=== PATIENT | male | born 1935 | race Caucasian/White ===

== ENCOUNTER → 2017-11-12 | Outpatient (CLI) | payer MEDICARE, BC ==
[~2017-11-12] MED LIST: ATOR20TA42 PO; AVOD0.5C PO; OMEP20CA5 PO; VASO10TA8 PO
--- NOTE | 2017-11-17 10:17 | RSPPFT ---
DATE OF PROCEDURE: 11/12/17 COMMENTS: STATIC VOLUMES: TLC mildly, FRC and RV low normal. DIFFUSION: Moderately reduced. IMPRESSION: Mild restriction with reduction in diffusion of moderate severity.
== END ==
LOC: HRSP 08:39
PROVIDERS: ATTEND Internal Medicine
DX: R06.02 Shortness of breath (principal)
CPT/HCPCS: 94618; 94726; 94729

== ENCOUNTER 2018-01-16 11:52 | Inpatient (IN) | payer MEDICARE, BC ==
[2018-01-16] VITALS (8 sets, daily range): BP systolic 94–196; BP diastolic 50–92; PULSE 70–91; RESP 15–23; TEMP 97.3–98.1; O2SAT 95–99
[~2018-01-16] VITALS: Ht 177.8 cm; Wt 93.3 kg
[~2018-01-16 11:52] MED LIST changes: -ATOR20TA42 PO; +LIPI20TA PO; -OMEP20CA5 PO; +PRIL20TA2 PO
[2018-01-16] MEDS ORDERED: LISI-519 PO (12:16)
[2018-01-16] MEDS ORDERED: VITA1000 PO (12:16)
[2018-01-16] MEDS ORDERED: OMEP20TA93 PO (12:16)
[2018-01-16] MEDS ORDERED: GLIM1TAB PO (12:16)
[2018-01-16] MEDS ORDERED: PRAD150C PO (12:16)
[2018-01-16] MEDS ORDERED: SODIUM CHLORIDE 0.9% FLUSH 10 ML FLUSH IVF PRN (12:30)
--- NOTE | 2018-01-16 12:44 | PD ---
HPI Chief Complaint: Neuro Symptoms/ Deficits Time Seen by Provider: 12:21 Travel History International Travel<30 days: No Contact w/Intl Traveler<30days: No Traveled to known affect area: No History of Present Illness HPI 82-year-old male with a history of hypertension, hyperlipidemia, diabetes mellitus, paroxysmal atrial fibrillation, presents today with complaints of difficulty walking earlier today which is resolved. The patient states that on Wednesday, 3 days ago, he had an episode where he was not able to see out of both eyes. He states this lasted roughly 15 minutes. He states he called his accounts specialist who told him to take his Pradaxa which he is already on as well as to aspirin. He states that it had resolved and everything was fine until last night when he had an episode of dizziness. He states that it also resolved however this morning when he was at breakfast he had the weakness in his legs. is at the bedside states that she and their friends had to help him in and out of the car when this happened. The patient is a friend of 1 of our retired pediatricians and he called him who stated that he should come to the hospital and be evaluated. The patient has no symptoms at this time. PFSH Past Medical History Hx Anticoagulant Therapy: Yes Arthritis: No Atrial Fibrillation: Yes Autoimmune Disease: No Blood Disorders: No Heart Rhythm Problems: Yes Cancer: Yes (prostate) Cardiovascular Problems: Yes High Cholesterol: Yes Chemotherapy: No Chest Pain: No Congestive Heart Failure: No Cerebrovascular Accident: Yes Diabetes: Yes (II) Patient Takes Glucophage: Yes Endocrine: Yes Gastrointestinal Disorders: Yes (hemorrhoids, bowel obstruction) GERD: Yes Genitourinary: No Hepatitis: No Hiatal Hernia: No Hypertension: Yes Immune Disorder: No Musculoskeletal: Yes Neurologic: No Psychiatric: No Reproductive: No Respiratory: No Myocardial Infarction: No Radiation Therapy: No Thyroid Disease: No Ulcer: No Tetanus Vaccination: Unknown Past Surgical History Abdominal Surgery: No Appendectomy: No Cardiac Surgery: No Cholecystectomy: No Ear Surgery: No Endocrine Surgery: No Eye Surgery: No Genitourinary Surgery: No Gynecologic Surgery: No Oral Surgery: No Thoracic Surgery: No Other Surgery: Yes (CERVICAL SPINE FUSION 30 YEARS AGO, MULTIPLE STAPH INFECTIONS ON FINGERS) Social History Alcohol Use: Yes (2/day) Tobacco Use: No Substance Use: No Allergies-Medications (Allergen,Severity, Reaction): Coded Allergies: latex (Unverified Allergy, Mild, RASH, 01/16/18) Reported Meds & Prescriptions Reported Meds & Active Scripts Active Reported Vitamin D-1000 (Cholecalciferol) 1,000 Unit Tab 1,000 Units PO DAILY Glimepiride 1 Mg Tab 1 Mg PO DAILY Take with breakfast or first main meal Pradaxa (Dabigatran) 150 Mg Cap 150 Mg PO DAILY Lisinopril 5 Mg Tab 5 Mg PO DAILY PRN Omeprazole 20 Mg Tab 20 Mg PO DAILY Lipitor (Atorvastatin Calcium) 20 Mg Tab 20 Mg PO HS Review of Systems Except as stated in HPI: all other systems reviewed are Neg General / Constitutional: No: Fever, Chills Eyes: Positive: Blindness (On Wednesday for 15 minutes bilateral eye blindness.), Other (Wednesday episode of bilateral eye blindness.), No: Blurred Vision HENT: Positive: Lightheadedness (Yesterday evening.), No: Headaches, Neck Pain Cardiovascular: Positive: Irregular Rhythm (History of atrial fibrillation), No : Chest Pain or Discomfort, Palpitations Respiratory: No: Cough, Shortness of Breath Gastrointestinal: No: Nausea, Vomiting, Abdominal Pain Genitourinary: No: Frequency, Dysuria Musculoskeletal: Positive: Weakness (Bilateral lower extremities earlier.), No : Pain Neurologic: Positive: Weakness (Bilateral lower extremity weakness earlier this morning which has resolved.), Dizziness (Last night which resolved.), Ataxia (Earlier with the it weakness.), No: Headache, Change in Mentation, Slurred Speech, Seizures, Sensory Disturbance Physical Exam Narrative GENERAL: Well-developed well-nourished male in no acute respiratory distress. SKIN: Focused skin assessment warm/dry. HEAD: Atraumatic. Normocephalic. EYES: No scleral icterus. No injection or drainage. ENT: No nasal bleeding or discharge. Mucous membranes pink and moist. NECK: Trachea midline. Supple. Questionable right faint carotid bruit. CARDIOVASCULAR: Regular rate and rhythm. No murmur appreciated. RESPIRATORY: No accessory muscle use. Clear to auscultation. Breath sounds equal bilaterally. GASTROINTESTINAL: Abdomen soft, non-tender, nondistended. MUSCULOSKELETAL: No obvious deformities. No clubbing. No cyanosis. No edema. NEUROLOGICAL: Awake and alert. No obvious cranial nerve deficits. Motor grossly within normal limits. Normal speech. Normal heel to rogers bilaterally. Normal finger to nose bilaterally. PSYCHIATRIC: Appropriate mood and affect; insight and judgment normal. Data Data Last Documented VS Vital Signs Date Time Temp Pulse Resp B/P (MAP) Pulse Ox O2 Delivery O2 Flow Rate FiO2 01/16/18 12:10 76 20 160/77 (104) 99 Room Air 01/16/18 11:56 97.3 Orders Orders Electrocardiogram (01/16/18 12:21) Prothrombin Time / Inr (Pt) (01/16/18 12:21) Act Partial Throm Time (Ptt) (01/16/18 12:21) Complete Blood Count With Diff (01/16/18 12:21) Comprehensive Metabolic Panel (01/16/18 12:21) Urinalysis - C+S If Indicated (01/16/18 12:21) Ct Brain W/O Iv Contrast(Rout) (01/16/18 12:21) Chest, Single Ap (01/16/18 12:21) Ecg Monitoring (01/16/18 12:21) Iv Access Insert/Monitor (01/16/18 12:21) Oximetry (01/16/18 12:21) Sodium Chloride 0.9% Flush (Ns Flush) (01/16/18 12:30) Admit To Inpatient (01/16/18 ) Code Status (01/16/18 14:36) Vital Signs (Adult) Q4H (01/16/18 14:36) Activity Oob Ad April (01/16/18 14:36) Bedside Glucose NICHOL.CSUGAR (01/16/18 14:36) Manager Organizational / Telemetry .CONTINUOUS (01/16/18 14:36) Intake + Output NICHOL.QSHIFT (01/16/18 14:36) Notify Dr: Other (01/16/18 14:36) Diet Npo (01/16/18 Dinner) Sodium Chlor 0.9% 1000 Ml Inj (Ns 1000 M (01/16/18 14:36) Sodium Chloride 0.9% Flush (Ns Flush) (01/16/18 14:45) Sodium Chloride 0.9% Flush (Ns Flush) (01/16/18 21:00) Acetaminophen (Tylenol) (01/16/18 14:45) Ondansetron Inj (Zofran Inj) (01/16/18 14:45) Basic Metabolic Panel (Bmp) (01/17/18 06:00) Complete Blood Count With Diff (01/17/18 06:00) Creatine Kinase (Cpk) (01/16/18 14:36) Creatine Kinase (Cpk) (01/16/18 20:36) Troponin I (01/16/18 14:36) Troponin I (01/16/18 20:36) Prothrombin Time / Inr (Pt) (01/17/18 06:00) Resp Oxygen [place] 1-4 L (01/16/18 ) Pt Request For Service (01/16/18 14:36) Ot Request For Service (01/16/18 14:36) Speech Therapy Consult-Eval/Tx (01/16/18 14:36) Case Management Consult (01/16/18 14:36) Heparin Inj (Heparin Inj) (01/16/18 16:00) Scd Bilateral/Knee High NICHOL.BID (01/16/18 14:36) Naloxone Inj (Narcan Inj) (01/16/18 14:45) Sennosides (Senokot) (01/16/18 14:45) Bisacodyl Supp (Dulcolax Supp) (01/16/18 14:45) Lactulose Liq (Lactulose Liq) (01/16/18 14:45) Inpatient Certification (01/16/18 ) Consult Neurology (01/16/18 ) Lipid Profile (01/16/18 14:45) Thyroid Stimulating Hormone (01/16/18 14:45) Free Thyroxine (T4) (01/16/18 14:45) Hemoglobin (Hgb) A1c (01/16/18 14:45) C-Reactive Protein (Crp) (01/16/18 14:45) Rapid Plasma Regin (Rpr) W Ttr (01/16/18 14:45) Echo 2d Comp With Doppler (01/16/18 ) Mra Brain W/O Contrast (Cow) (01/16/18 ) Mri Brain W/O Contrast (01/16/18 ) Us Carotid Arteries Comp Bilat (01/16/18 ) Vitamin B1 (Thiamine) (01/16/18 14:49) Folate, Serum (01/16/18 14:49) Vitamin B12 (01/16/18 14:49) Atorvastatin (Lipitor) (01/16/18 21:00) Cholecalciferol (Vitamin D3) (01/17/18 09:00) Dabigatran (Pradaxa) (01/17/18 09:00) Pantoprazole (Protonix) (01/17/18 09:00) Insulin Aspart Supplemtl Scale (Novolog (01/16/18 17:00) Admit Order (Ed Use Only) (01/16/18 15:25) Labs Laboratory Tests Test 01/16/18 12:28 01/16/18 13:54 White Blood Count 6.6 TH/MM3 Red Blood Count 4.27 MIL/MM3 Hemoglobin 14.6 GM/DL Hematocrit 41.8 % Mean Corpuscular Volume 97.9 FL Mean Corpuscular Hemoglobin 34.3 PG Mean Corpuscular Hemoglobin Concent 35.0 % Red Cell Distribution Width 13.2 % Platelet Count 160 TH/MM3 Mean Platelet Volume 8.2 FL Neutrophils (%) (Auto) 68.6 % Lymphocytes (%) (Auto) 23.0 % Monocytes (%) (Auto) 7.2 % Eosinophils (%) (Auto) 0.6 % Basophils (%) (Auto) 0.6 % Neutrophils # (Auto) 4.5 TH/MM3 Lymphocytes # (Auto) 1.5 TH/MM3 Monocytes # (Auto) 0.5 TH/MM3 Eosinophils # (Auto) 0.0 TH/MM3 Basophils # (Auto) 0.0 TH/MM3 CBC Comment DIFF FINAL Differential Comment Prothrombin Time 12.0 SEC Prothromb Time International Ratio 1.2 RATIO Activated Partial Thromboplast Time 32.2 SEC Blood Urea Nitrogen 25 MG/DL Creatinine 1.95 MG/DL Random Glucose 142 MG/DL Total Protein 7.1 GM/DL Albumin 3.5 GM/DL Calcium Level 8.6 MG/DL Alkaline Phosphatase 77 U/L Aspartate Amino Transf (AST/SGOT) 34 U/L Alanine Aminotransferase (ALT/SGPT) 39 U/L Total Bilirubin 1.0 MG/DL Sodium Level 139 MEQ/L Potassium Level 4.6 MEQ/L Chloride Level 106 MEQ/L Carbon Dioxide Level 25.2 MEQ/L Anion Gap 8 MEQ/L Estimat Glomerular Filtration Rate 33 ML/MIN Total Creatine Kinase 225 U/L Troponin I LESS THAN 0.02 NG/ML Urine Color YELLOW Urine Turbidity CLEAR Urine pH 5.0 Urine Specific [place] 1.007 Urine Protein NEG mg/dL Urine Glucose (UA) NEG mg/dL Urine Ketones NEG mg/dL Urine Occult Blood NEG Urine Nitrite NEG Urine Bilirubin NEG Urine Urobilinogen LESS THAN 2.0 MG/DL Urine Leukocyte Esterase NEG Urine Hyaline Casts 1 /lpf Microscopic Urinalysis Comment CATH-CULT NOT IND MDM Medical Decision Making Medical Screen Exam Complete: Yes Emergency Medical Condition: Yes Differential Diagnosis TIA versus CVA versus metabolic derangement versus failed anticoagulation Narrative Course 82-year-old male presents here with TIA like him times. Patient had an episode on Wednesday where he had loss of vision bilaterally. Today he had an episode of dizziness and ataxia. Both symptoms has resolved here. CT scan shows no evidence of acute intracranial normality's. EKG showed sinus rhythm not A. fib. The patient is already anticoagulated on Pradaxa. Given this, I will admit him to the hospital. Case was discussed with Dr. Vides, [facility] hospitalist, who will admit the patient to his service. The patient will be a full admit given his symptoms despite anticoagulation. He will need an MRI and carotid ultrasound. Diagnosis Primary Impression: Recurrent TIA Additional Impressions: History of atrial fibrillation Anticoagulated Questionable right carotid bruit Admitting Information Admitting Physician Requests: Admit Jg Zamora MD Jan 16, 2018 12:44
[2018-01-16 12:45] LABS: AUTOMATED NEUTROPHIL # 4.5 TH/MM3 (1.8-7.7); BASOPHIL % 0.6 % (0.0-2.0); EOSINOPHIL % 0.6 % (0.0-4.0); HEMATOCRIT 41.8 % (39.0-51.0); HEMOGLOBIN 14.6 GM/DL (13.0-17.0); LYMPHOCYTE # 1.5 TH/MM3 (1.0-4.8); MEAN CELL VOLUME 97.9 FL (80.0-100.0); MEAN CORPUSCULAR HEMOGLOBIN 34.3 PG (27.0-34.0); MEAN PLATELET VOLUME 8.2 FL (7.0-11.0); MONO % 7.2 % (0.0-8.0); MONOCYTE # 0.5 TH/MM3 (0-0.9); NEUT % 68.6 % (16.0-70.0); PLATELET COUNT 160 TH/MM3 (150-450); RED BLOOD COUNT 4.27 MIL/MM3 (4.50-5.90); RED CELL DISTRIBUTION WIDTH 13.2 % (11.6-17.2); WHITE BLOOD COUNT 6.6 TH/MM3 (4.0-11.0)
--- NOTE | 2018-01-16 12:49 | RADRPT ---
EXAM DATE/TIME: 01/16/2018 12:26 [facility] COMPARISON: CHEST SINGLE AP, December 24, 2009, 21:42. INDICATIONS : Short of breath MEDICAL HISTORY : A-fib SURGICAL HISTORY : None. ENCOUNTER: Initial ACUITY: 1 day PAIN SCORE: 0/10 LOCATION: chest FINDINGS: The heart is at the upper limits of normal in size. The lungs are clear. The visualized bony structur es are grossly intact. CONCLUSION: 1. No acute cardiopulmonary findings. Stable compared to prior dated 12/24/09 Lester Lacy MD on January 16, 2018 at 12:46 Board Certified Radiologist. This report was verified electronically.
[2018-01-16 12:55] LABS: INTERNATIONAL NORMALIZED RATIO 1.2 RATIO
[2018-01-16 13:01] LABS: ALKALINE PHOSPHATASE 77 U/L (45-117); TOTAL PROTEIN 7.1 GM/DL (6.4-8.2)
[2018-01-16 13:03] LABS: ALBUMIN 3.5 GM/DL (3.4-5.0); ALT (GPT) 39 U/L (12-78); AST (GOT) 34 U/L (15-37); BICARBONATE 25.2 MEQ/L (21.0-32.0); BLOOD UREA NITROGEN 25 MG/DL (7-18); CALCIUM 8.6 MG/DL (8.5-10.1); CHLORIDE 106 MEQ/L (98-107); CREATININE 1.95 MG/DL (0.60-1.30); GLOMERULAR FILTRATION RATE 33 ML/MIN (>89); GLUCOSE,RANDOM 142 MG/DL (74-106); SODIUM (NA) 139 MEQ/L (136-145)
--- NOTE | 2018-01-16 14:08 | RADRPT ---
EXAM DATE/TIME: 01/16/2018 13:10 [facility] COMPARISON: CT BRAIN W/O CONTRAST, December 24, 2009, 23:53. INDICATIONS : Unsteady gait. TIA, temporary visual loss. RADIATION DOSE: 36.52 CTDIvol (mGy) MEDICAL HISTORY : Cerebrovascular disease. Cardiovascular disease Hypertension.AFib,GERD, prostate ca, diabetes SURGICAL HISTORY : None. ENCOUNTER: Initial ACUITY: 2 days PAIN SCALE: 0/10 LOCATION: cranial TECHNIQUE: Multiple contiguous axial images were obtained of the head. Using automated exposure control and adj ustment of the mA and/or kV according to patient size, radiation dose was kept as low as reasonably a chievable to obtain optimal diagnostic quality images. DICOM format image data is available electro nically for review and comparison. FINDINGS: CEREBRUM: The ventricles are normal for age. No evidence of midline shift, mass lesion, hemorrhage or acute in farction. No extra-axial fluid collections are seen. POSTERIOR FOSSA: The cerebellum and brainstem are intact. The 4th ventricle is midline. The cerebellopontine angle i s unremarkable. EXTRACRANIAL: The visualized portion of the orbits is intact. SKULL: The calvaria is intact. No evidence of skull fracture. CONCLUSION: Normal examination. Sheila Drake MD on January 16, 2018 at 14:03 Board Certified Radiologist. This report was verified electronically.
[2018-01-16 14:31] LABS: BILIRUBIN, URINE NEG (NEG); BLOOD, URINE NEG (NEG); GLUCOSE,URINE NEG (NEG); HYALINE CAST, URINE 1 /lpf (RARE); KETONE, URINE NEG (NEG); NITRITE,URINE NEG (NEG); URINE COLOR YELLOW (YELLW/STRAW); URINE LEUKOCYTE ESTERASE NEG (NEG)
[2018-01-16] MEDS ORDERED: BISACODYL 10 MG SUPP RECTAL PRN (14:45)
[2018-01-16] MEDS ORDERED: LACTULOSE SYRUP 20 GM/30 ML CUP PO PRN (14:45)
[2018-01-16] MEDS ORDERED: SENNOSIDES 8.6 MG TAB PO PRN (14:45)
[2018-01-16] MEDS ORDERED: ONDANSETRON HCL 4 MG/2 ML VIAL IVP PRN (14:45)
[2018-01-16] MEDS ORDERED: ACETAMINOPHEN 325 MG TAB PO PRN (14:45)
[2018-01-16] MEDS ORDERED: SODIUM CHLORIDE 0.9% FLUSH 10 ML FLUSH IV FLUSH PRN (14:45)
[2018-01-16] MEDS ORDERED: NALOXONE HCL 0.4 MG/ML AMP IV PUSH PRN (14:45)
--- NOTE | 2018-01-16 14:51 | HHI.HP ---
[facility]Staff Admission Diagnosis Diagnoses: Chief Complaint: unable to walk Travel History International Travel<30 Days: No Contact w/Intl Traveler <30 Da: No Traveled to Known Affected Are: No History of Present Illness This is a pleasant 82 y/o male with Hypertension, Hyperlipidemia, DM II, PAF, who was brought in to Emergency Room with difficulty walking earlier today which is resolved. The patient states that on Wednesday, 3 days ago , he had an episode where he was not able to see out of both eyes. He states this lasted roughly 15 minutes. He states he called his mammographer who told him to take his Pradaxa which he is already on as well as to aspirin. He states that it had resolved and everything was fine until last night when he had an episode of dizziness. He states that it also resolved however this morning when he was at breakfast he had the weakness in his legs. is at the bedside states that she and their friends had to help him in and out of the car when this happened. Seen in his bedroom in the presence of his Daughter Mrs. Markham and his Mrs. Salinas all questions answered. Review of Systems Constitutional: DENIES: Fever, Chills, Change in appetite Endocrine: DENIES: Heat/cold intolerance Eyes: DENIES: Blurred vision, Eye pain Neurologic: COMPLAINS OF: Poor Balance Except as stated in HPI: all other systems reviewed are Neg Past Family Social History Past Medical History Atrial Fibrillation on Pradaxa Prostate Cancer CAD Hyperlipidemia CVA DM II GERD Hypertension Past Surgical History Cervical spine fusion 30 years ago multiple staph infections on fingers Reported Medications Reported Meds & Active Scripts Active Reported Vitamin D-1000 (Cholecalciferol) 1,000 Unit Tab 1,000 Units PO DAILY Glimepiride 1 Mg Tab 1 Mg PO DAILY Take with breakfast or first main meal Pradaxa (Dabigatran) 150 Mg Cap 150 Mg PO DAILY Lisinopril 5 Mg Tab 5 Mg PO DAILY PRN Omeprazole 20 Mg Tab 20 Mg PO DAILY Lipitor (Atorvastatin Calcium) 20 Mg Tab 20 Mg PO HS Allergies: Coded Allergies: latex (Unverified Allergy, Mild, RASH, 01/16/18) Active Ordered Medications Current Medications Medications (Trade) Dose Ordered Sig/Hawk Route Start Time Stop Time Status Last Admin (NS Flush) 2 ml UNSCH PRN IVF 01/16/18 12:30 Sodium Chloride 1,000 ml @ 100 mls/hr Q10H IV 01/16/18 14:36 (NS Flush) 2 ml UNSCH PRN IV FLUSH 01/16/18 14:45 (NS Flush) 2 ml BID IV FLUSH 01/16/18 21:00 (Tylenol) 650 mg Q4H PRN PO 01/16/18 14:45 (Zofran Inj) 4 mg Q6H PRN IVP 01/16/18 14:45 (Heparin Inj) 5,000 units Q12H SQ 01/16/18 16:00 (Narcan Inj) 0.4 mg UNSCH PRN IV PUSH 01/16/18 14:45 (Senokot) 17.2 mg Q12H PRN PO 01/16/18 14:45 (Dulcolax Supp) 10 mg DAILY PRN RECTAL 01/16/18 14:45 (Lactulose Liq) 30 ml DAILY PRN PO 01/16/18 14:45 Family History Brother with CAD and Lung Cancer Brother with CAD Father with Prostate Cancer Social History Alcohol abuse two a day. Physical Exam Vital Signs Vital Signs Date Time Temp Pulse Resp B/P (MAP) Pulse Ox O2 Delivery O2 Flow Rate FiO2 01/16/18 12:10 76 20 160/77 (104) 99 Room Air 01/16/18 11:56 97.3 76 16 117/62 (80) 99 Physical Exam GENERAL: Well-developed well-nourished male in no acute respiratory distress. SKIN: Focused skin assessment warm/dry. HEAD: Atraumatic. Normocephalic. EYES: No scleral icterus. No injection or drainage. ENT: No nasal bleeding or discharge. Mucous membranes pink and moist. NECK: Trachea midline. Supple. Questionable right faint carotid bruit. CARDIOVASCULAR: Regular rate and rhythm. No murmur appreciated. RESPIRATORY: No accessory muscle use. Clear to auscultation. Breath sounds equal bilaterally. GASTROINTESTINAL: Abdomen soft, non-tender, nondistended. MUSCULOSKELETAL: No obvious deformities. No clubbing. No cyanosis. No edema. NEUROLOGICAL: Awake and alert. No obvious cranial nerve deficits. Motor grossly within normal limits. Normal speech. Normal heel to rogers bilaterally. Normal finger to nose bilaterally. PSYCHIATRIC: Appropriate mood and affect; insight and judgment normal. Laboratory Laboratory Tests Test 01/16/18 12:28 01/16/18 13:54 White Blood Count 6.6 Red Blood Count 4.27 Hemoglobin 14.6 Hematocrit 41.8 Mean Corpuscular Volume 97.9 Mean Corpuscular Hemoglobin 34.3 Mean Corpuscular Hemoglobin Concent 35.0 Red Cell Distribution Width 13.2 Platelet Count 160 Mean Platelet Volume 8.2 Neutrophils (%) (Auto) 68.6 Lymphocytes (%) (Auto) 23.0 Monocytes (%) (Auto) 7.2 Eosinophils (%) (Auto) 0.6 Basophils (%) (Auto) 0.6 Neutrophils # (Auto) 4.5 Lymphocytes # (Auto) 1.5 Monocytes # (Auto) 0.5 Eosinophils # (Auto) 0.0 Basophils # (Auto) 0.0 CBC Comment DIFF FINAL Differential Comment Prothrombin Time 12.0 Prothromb Time International Ratio 1.2 Activated Partial Thromboplast Time 32.2 Blood Urea Nitrogen 25 Creatinine 1.95 Random Glucose 142 Total Protein 7.1 Albumin 3.5 Calcium Level 8.6 Alkaline Phosphatase 77 Aspartate Amino Transf (AST/SGOT) 34 Alanine Aminotransferase (ALT/SGPT) 39 Total Bilirubin 1.0 Sodium Level 139 Potassium Level 4.6 Chloride Level 106 Carbon Dioxide Level 25.2 Anion Gap 8 Estimat Glomerular Filtration Rate 33 Result Diagram: 01/16/18 1228 01/16/188 Caprini VTE Risk Assessment Caprini VTE Risk Assessment: Mod/High Risk (score >= 2) Caprini Risk Assessment Model Point Value = 1 Point Value = 2 Point Value = 3 Point Value = 5 Age 41-60 Minor surgery BMI > 25 kg/m2 Swollen legs Varicose veins or History of unexplained or recurrent spontaneous Oral contraceptives or hormone replacement Sepsis (< 1 month) Serious lung disease, including pneumonia (< 1 month) Abnormal pulmonary function Acute myocardial infarction Congestive heart failure (< 1 month) History of inflammatory bowel disease Medical patient at bed rest Age 61-74 Arthroscopic surgery Major open surgery (> 45 min) Laparoscopic surgery (> 45 min) Malignancy Confined to bed (> 72 hours) Immobilizing plaster cast Central venous access Age >= 75 History of VTE Family history of VTE Factor V Leiden Prothrombin [id number] Lupus anticoagulant Anticardiolipin antibodies Elevated serum homocysteine Heparin-induced thrombocytopenia Other congenital or acquired thrombophilia Stroke (< 1 month) Elective arthroplasty Hip, pelvis, or leg fracture Acute spinal cord injury (< 1 month) Prophylaxis Regimen Total Risk Factor Score Risk Level Prophylaxis Regimen 0-1 Low Early ambulation 2 Moderate Order ONE of the following: *Sequential Compression Device (SCD) *Heparin 5000 units SQ BID 3-4 Higher Order ONE of the following medications: *Heparin 5000 units SQ TID *Enoxaparin/Lovenox 40 mg SQ daily (WT < 150 kg, CrCl > 30 mL/min) *Enoxaparin/Lovenox 30 mg SQ daily (WT < 150 kg, CrCl > 10-29 mL/min) *Enoxaparin/Lovenox 30 mg SQ BID (WT < 150 kg, CrCl > 30 mL/min) AND/OR *Sequential Compression Device (SCD) 5 or more Highest Order ONE of the following medications: *Heparin 5000 units SQ TID (Preferred with Epidurals) *Enoxaparin/Lovenox 40 mg SQ daily (WT < 150 kg, CrCl > 30 mL/min) *Enoxaparin/Lovenox 30 mg SQ daily (WT < 150 kg, CrCl > 10-29 mL/min) *Enoxaparin/Lovenox 30 mg SQ BID (WT < 150 kg, CrCl > 30 mL/min) AND *Sequential Compression Device (SCD) Assessment and Plan Assessment and Plan 1. TIA rule out CVA, asked for hospitalization, Aspirin given, EKG, Cardiac monitoring, Cardiac enzymes, complete laboratory TSH, Free T4, hemoglobin A1c, Lipid profile, Vitamin B12, Thiamin, Folate, Echocardiogram, Brain MRA and MRI, Carotid Doppler Permissive hypertension on hold Lisinopril, NPO until speech therapy clears him to eat. 2. Atrial Fibrillation on Pradaxa I will continue his medicines and follow neurology specialist recommendations. at this time in sinus rhythm. 3. Prostate Cancer by history 4. CAD by history 5. Hyperlipidemia to continue Statins 6. Acute Renal injury on chronic kidney disease. on IV fluids and following. 7. DM II sliding scale 8. GERD continue PPIs from home medicines. 9. Hypertension permissive hypertension DVT prophylaxis with Pradaxa. Code Status Full Code. Discussed Condition With Jg Zamora MD Discussed with Patient, His Daughter Mrs. Markham and his Mrs. Salinas. Physician Certification 2 Midnight Certification Type: Admission for Inpatient Services Order for Inpatient Services The services are ordered in accordance with Medicare regulations or non- Medicare payer requirements, as applicable. In the case of services not specified as inpatient-only, they are appropriately provided as inpatient services in accordance with the 2-midnight benchmark. Estimated LOS (days): 3 days is the estimated time the patient will need to remain in the hospital, assuming treatment plan goals are met and no additional complications. Post-Hospital Plan: Not yet determined Zohaib Woody MD Jan 16, 2018 14:51
[2018-01-16 15:32] LABS: TROPONIN I LESS THAN 0.02 NG/ML (0.02-0.05)
[2018-01-16] MEDS ORDERED: HEPARIN SODIUM - SQ 10,000 UNITS/ML VIAL SQ SCH (16:00)
--- NOTE | 2018-01-16 16:16 | RADRPT ---
EXAM DATE/TIME: 01/16/2018 15:44 [facility] COMPARISON: No previous studies available for comparison. INDICATIONS : Transient ischemic attack. MEDICAL HISTORY : Hypercholesterolemia. Diabetes mellitus type 2. Carcinoma, prostate. Tinnitis. CVA. Afib. HTN. Hemorr hoids. Bowel obstruction. GERD. Anticoagulant therapy, Heparin & Pradaxa. SURGICAL HISTORY : Cervical spine fusion. Multiple staph infections on fingers. ENCOUNTER: Initial ACUITY: 3 days PAIN SCORE: 2/10 LOCATION: Bilateral neck PEAK SYSTOLIC VELOCITIES (cm/sec): ICA/CCA RATIO: Right: 2.3 Left: 1.3 ICA: Right: 161 Left: 103 CCA: Right: 69 Left: 82 ECA: Right: 93 Left: 58 VERTEBRAL: Right: 53 antegrade Left: 74 antegrade Elevated flow velocities and ICA/CCA ratios have been found to correlate with increased degrees of vessel stenosis, calculated as percentage of diameter relative to a normal segment of distal ICA/CCA FINDINGS: There is calcified and noncalcified plaque present bilaterally, most prominent around the right carot id bifurcation. His elevated peak systolic velocity and is the ratio on the right. Velocities on the left side are within normal range. CONCLUSION: 1. Moderate plaque formation around the right carotid bifurcation with velocities suggestive of a xiao nosis in the 50-70% range. No hemodynamically significant stenosis on the left. Stuart Barrios MD on January 16, 2018 at 16:11 Board Certified Radiologist. This report was verified electronically.
[2018-01-16] MEDS: INSULIN ASPART SUPPLEMENTAL SCALE SQ SCH ×2 (16:22→21:00)
[2018-01-16] MEDS ORDERED: LORazepam 2 MG/ML VIAL ONE (16:49)
[2018-01-16] MEDS ORDERED: LORazepam 2 MG/ML VIAL IV PUSH ONE (17:00)
--- NOTE | 2018-01-16 17:18 | RADRPT ---
EXAM DATE/TIME: 01/16/2018 16:56 [facility] COMPARISON: No previous studies available for comparison. INDICATIONS : Bilateral lower extremity weakness. MEDICAL HISTORY : Diabetes mellitus type 2. Hypertension. SURGICAL HISTORY : Fusion, cervical. ENCOUNTER: Initial ACUITY: 1 day PAIN SCORE: 0/10 LOCATION: cranial Please note a normal MRA of the brain does not entirely exclude the possibility of a small aneurysm, nor the possibility of distal intracranial vessel disease. TECHNIQUE: 3D time of flight MRA was performed. Source images, multiplanar STS MIP, and 3D volume MIP reconstru ctions were reviewed. FINDINGS: There is excellent visualization of the major intracranial arteries out to the second-order branch ve ssels. There is no evidence for aneurysm, vessel truncation or stenosis, and no evidence for vascula r malformation. CONCLUSION: Normal examination for a patient of this age. Stuart Barrios MD on January 16, 2018 at 17:13 Board Certified Radiologist. This report was verified electronically.
--- NOTE | 2018-01-16 17:46 | RADRPT ---
EXAM DATE/TIME: 01/16/2018 16:56 [facility] COMPARISON: No previous studies available for comparison. INDICATIONS : Bilateral lower extremity weakness. MEDICAL HISTORY : Diabetes mellitus type 2. Hypertension. SURGICAL HISTORY : Fusion, cervical. ENCOUNTER: Initial ACUITY: 1 day PAIN SCORE: 0/10 LOCATION: Paraspinal TECHNIQUE: Multiplanar, multisequence MRI of the brain was performed without contrast. FINDINGS: CEREBRUM: The ventricles are normal for age. No evidence of midline shift, mass lesion, hemorrhage or acute in farction. No extraaxial fluid collections are seen. The pituitary gland and suprasellar cistern are normal in configuration. WHITE MATTER: No significant signal abnormalities are seen in the white matter. POSTERIOR FOSSA: The cerebellum and brainstem are intact. The 4th ventricle is midline. The cerebellopontine angle is unremarkable. The cerebellar tonsils are normal in position. DIFFUSION IMAGING: No focal areas of restricted diffusion are seen. No evidence of acute infarction. EXTRACRANIAL: The visualized portions of the orbits and paranasal sinuses are unremarkable. CONCLUSION: Normal examination for a patient of this age. Stuart Barrios MD on January 16, 2018 at 17:41 Board Certified Radiologist. This report was verified electronically.
[2018-01-16] MEDS ORDERED: hydrALAZINE HCL 20 MG/ML VIAL IV PUSH PRN (18:45)
[2018-01-16] MEDS: ATORVASTATIN 20 MG TAB PO SCH (21:07)
[2018-01-16] MEDS: SODIUM CHLORIDE 0.9% FLUSH 10 ML FLUSH IV FLUSH SCH (21:08)
[2018-01-16] MEDS: SODIUM CHLOR 0.9% 1000 ML INJ 1,000 ML IV SCH (21:13)
[2018-01-16 23:33] LABS: CHOLESTEROL 131 MG/DL (120-200); TRIGLYCERIDES 156 MG/DL (42-150)
[2018-01-16 23:59] LABS: C-REACTIVE PROTEIN LESS THAN 0.29 MG/DL (0.00-0.30); CHOLESTEROL/ HDL RATIO 2.33 RATIO; FOLATE 8.8 NG/ML (3.1-17.5); FREE T4 0.78 NG/DL (0.76-1.46); HDL CHOLESTEROL 56.1 MG/DL (40.0-60.0); LDL CHOLESTEROL 44 MG/DL (0-99); TROPONIN I LESS THAN 0.02 NG/ML (0.02-0.05)
[2018-01-17] VITALS (13 sets, daily range): BP systolic 89–195; BP diastolic 52–105; PULSE 59–83; RESP 18–20; TEMP 97.5–98.1; O2SAT 95–98
[2018-01-17] MEDS: SODIUM CHLOR 0.9% 1000 ML INJ 1,000 ML IV SCH ×3 (00:36→21:07)
[2018-01-17 06:58] LABS: INTERNATIONAL NORMALIZED RATIO 1.2 RATIO; PROTHROMBIN TIME - PATIENT 12.1 SEC (9.8-11.6)
[2018-01-17 07:03] LABS: AUTOMATED NEUTROPHIL # 2.8 TH/MM3 (1.8-7.7); BASOPHIL % 0.9 % (0.0-2.0); HEMATOCRIT 41.1 % (39.0-51.0); HEMOGLOBIN 14.3 GM/DL (13.0-17.0); LYMPH % 31.6 % (9.0-44.0); LYMPHOCYTE # 1.5 TH/MM3 (1.0-4.8); MEAN CORPUSCULAR HGB CONC 34.7 % (32.0-36.0); MEAN PLATELET VOLUME 8.1 FL (7.0-11.0); MONO % 7.5 % (0.0-8.0); MONOCYTE # 0.4 TH/MM3 (0-0.9); PLATELET COUNT 128 TH/MM3 (150-450); RED CELL DISTRIBUTION WIDTH 13.2 % (11.6-17.2); WHITE BLOOD COUNT 4.8 TH/MM3 (4.0-11.0)
[2018-01-17 07:21] LABS: BICARBONATE 23.1 MEQ/L (21.0-32.0); CALCIUM 8.3 MG/DL (8.5-10.1); CREATININE 1.42 MG/DL (0.60-1.30)
--- NOTE | 2018-01-17 08:29 | HHI.PR ---
Subjective Remarks Follow-up for probable TIA, atrial fibrillation. Patient is currently resting in bed and doing well. No acute concerns. Denies any chest pain, shortness of breath, fever or chills. Family members at bedside. Objective Vitals Vital Signs Date Time Temp Pulse Resp B/P (MAP) Pulse Ox O2 Delivery O2 Flow Rate FiO2 01/17/18 08:00 97.9 64 18 153/105 (121) 98 01/17/18 06:27 96 01/17/18 05:06 97.7 68 18 156/57 (90) 96 01/17/18 04:30 59 01/17/18 01:30 64 01/17/18 01:09 97.5 72 18 145/63 (90) 95 01/16/18 22:00 98.0 77 18 133/65 (87) 95 01/16/18 21:30 90 01/16/18 20:55 98.1 91 18 94/50 (65) 98 01/16/18 19:23 80 16 196/82 (120) 98 Room Air 01/16/18 18:11 75 15 194/92 (126) 96 Room Air 01/16/18 15:38 70 23 189/86 (120) 98 Room Air 01/16/18 12:10 76 20 160/77 (104) 99 Room Air 01/16/18 11:56 97.3 76 16 117/62 (80) 99 I/O 01/16/18 01/16/18 01/16/18 01/17/18 01/17/18 01/17/18 07:00 15:00 23:00 07:00 15:00 23:00 Output Total 400 ml Balance -400 ml Output Urine Total 400 ml # Voids 1 Result Diagram: 01/17/18 0637 01/17/18 0637 Imaging Last Impressions Head CT 01/16/18 1221 Signed Impressions: Service Date/Time: Tuesday, January 16, 2018 13:10 - CONCLUSION: Normal examination. Sheila Drake MD Chest X-Ray 01/16/181220 Signed Impressions: Service Date/Time: Tuesday, January 16, 2018 12:26 - CONCLUSION: 1. No acute cardiopulmonary findings. Stable compared to prior dated 12/24/09 Lester Lacy MD Head Magnetic Resonance Angiography 01/16/18 0000 Signed Impressions: Service Date/Time: Tuesday, January 16, 2018 16:56 - CONCLUSION: Normal examination for a patient of this age. Stuart Barrios MD Carotid Artery Ultrasound 01/16/18 0000 Signed Impressions: Service Date/Time: Tuesday, January 16, 2018 15:44 - CONCLUSION: 1. Moderate plaque formation around the right carotid bifurcation with velocities suggestive of a stenosis in the 50-70%% range. No hemodynamically significant stenosis on the left. Stuart Barrios MD Brain MRI 01/16/18 0000 Signed Impressions: Service Date/Time: Tuesday, January 16, 2018 16:56 - CONCLUSION: Normal examination for a patient of this age. Stuart Barrios MD Objective Remarks GENERAL: SKIN: Warm and dry. HEAD: Normocephalic. EYES: No scleral icterus. No injection or drainage. NECK: Supple, trachea midline. No JVD or lymphadenopathy. CARDIOVASCULAR: Regular rate and rhythm without murmurs, gallops, or rubs. RESPIRATORY: Breath sounds equal bilaterally. No accessory muscle use. GASTROINTESTINAL: Abdomen soft, non-tender, nondistended. MUSCULOSKELETAL: No cyanosis, or edema. BACK: Nontender without obvious deformity. No CVA tenderness. Procedures Echocardiogram 01/17/2018. Report pending. A/P Problem List: (1) Orthostatic hypotension ICD Code: I95.1 - Orthostatic hypotension (2) Atrial fibrillation ICD Code: I48.91 - Unspecified atrial fibrillation (3) Near syncope ICD Code: R55 - Syncope and collapse Assessment and Plan Mr. Krishnamurthy is a pleasant 82-year-old male with a history of atrial fibrillation currently on Pradaxa who presented to the emergency department on due to transient vision loss as well as dizziness. He describes low blood pressure at his baseline. However occasionally he has significant hypertension as well. During his episode of vision loss he was unable to check his blood pressure. However immediately after his vision came back approximately 15 minutes after the onset, his blood pressure was in the 180s systolic. He does report dizziness when he stands up. His blood pressure normally runs in the 90s systolic. -Transient vision loss -Orthostatic hypotension -Near syncope -Transient vision loss could be due to significant elevation in blood pressure -possibly PRES. -Orthostatic blood pressure was significant. Sitting blood pressure was 164/ 84, supine 163/79, standing 101/58. -Continue normal saline at 100 cc/h. -Will start patient on Fludrocortisone 0.1mg Qday. Will need to be careful since patient's blood pressure sometimes goes up as well. -He would benefit from a nephrology evaluation which can be done in the outpatient setting. - Acute kidney injury -Creatinine improved from 1.95 --> 1.42. -Continue NS @100 cc/hour. -Outpatient referral to Nephrology would be reasonable. - Diabetes mellitus - Patient takes Glimepiride 1mg Qday at home. - Continue Sliding scale insulin. Goal in the hospital 140-180. - Continue Lipitor 20mg Qday. - Atrial fibrillation - Currently on no rate control meds. - Continue Pradaxa 150mg Qday. - Right sided mild carotid stenosis - Will consult Dr. Hernandez (Vascular surgery). May need outpatient follow up. Full code. Pradaxa. Lyssa Bowman DO Jan 17, 2018 8:29 am
[2018-01-17] MEDS: CHOLECALCIFEROL (VIT D3) 1000 UNIT TAB PO SCH (08:50)
[2018-01-17] MEDS: PANTOPRAZOLE SOD 20 MG DELAYED RELEASE TAB PO SCH (08:50)
[2018-01-17] MEDS: SODIUM CHLORIDE 0.9% FLUSH 10 ML FLUSH IV FLUSH SCH ×2 (08:50→21:06)
[2018-01-17] MEDS: DABIGATRAN ETEXILATE 150 MG CAP PO SCH (08:50)
[2018-01-17] MEDS: INSULIN ASPART SUPPLEMENTAL SCALE SQ SCH ×4 (08:51→21:00)
--- NOTE | 2018-01-17 09:44 | PD.CONS ---
History of Present Illness Service Neurology Consult Requested By medical Reason for Consult tia Primary Care Physician Non-Staff History of Present Illness 82 y/o male admitted for possible tia. had episode for about 10 mins after grocery shopping in which he couldn't see out of either eye. states it was very fuzzy, not black, no hemifield field loss. he checked his bp after episode and was 125/77. the next day he had an episode in which his legs felt weak. this has all resolved. no day, no vertigo, no sensory symptoms. has had episodes of presyncope from low bp but has also had elevated bp for which he takes lisinopril prn. takes pradaxa qd x years. mri brain, mra brain nml. carotid u/s rt 50-70%. Review of Systems as above and admit hp Past Family Social History Past Medical History Atrial Fibrillation Prostate Cancer CAD Hyperlipidemia DM II GERD Hypertension chronic low back pain; see's pain md for it Past Surgical History Cervical spine fusion 30 years ago multiple staph infections on fingers Reported Medications Reported Meds & Active Scripts Active Reported Vitamin D-1000 (Cholecalciferol) 1,000 Unit Tab 1,000 Units PO DAILY Glimepiride 1 Mg Tab 1 Mg PO DAILY Take with breakfast or first main meal Pradaxa (Dabigatran) 150 Mg Cap 150 Mg PO DAILY Lisinopril 5 Mg Tab 5 Mg PO DAILY PRN Omeprazole 20 Mg Tab 20 Mg PO DAILY Lipitor (Atorvastatin Calcium) 20 Mg Tab 20 Mg PO HS Allergies: Coded Allergies: latex (Unverified Allergy, Mild, RASH, 01/16/18) Active Ordered Medications Current Medications Medications (Trade) Dose Ordered Sig/Hawk Route Start Time Stop Time Status Last Admin (NS Flush) 2 ml UNSCH PRN IVF 01/16/18 12:30 Sodium Chloride 1,000 ml @ 100 mls/hr Q10H IV 01/16/18 14:36 (NS Flush) 2 ml UNSCH PRN IV FLUSH 01/16/18 14:45 (NS Flush) 2 ml BID IV FLUSH 01/16/18 21:00 (Tylenol) 650 mg Q4H PRN PO 01/16/18 14:45 (Zofran Inj) 4 mg Q6H PRN IVP 01/16/18 14:45 (Heparin Inj) 5,000 units Q12H SQ 01/16/18 16:00 (Narcan Inj) 0.4 mg UNSCH PRN IV PUSH 01/16/18 14:45 (Senokot) 17.2 mg Q12H PRN PO 01/16/18 14:45 (Dulcolax Supp) 10 mg DAILY PRN RECTAL 01/16/18 14:45 (Lactulose Liq) 30 ml DAILY PRN PO 01/16/18 14:45 Family History Brother with CAD and Lung Cancer Brother with CAD Father with Prostate Cancer Social History 1-2 etoh/day. . no tob/illicit drug use Review of Systems All other ROS: ROS reviewed as documented in chart Past Family Social History Allergies: Coded Allergies: latex (Unverified Allergy, Mild, RASH, 01/16/18) Active Ordered Medications Current Medications Medications (Trade) Dose Ordered Sig/Hawk Route Start Time Stop Time Status Last Admin (NS Flush) 2 ml UNSCH PRN IVF 01/16/18 12:30 Sodium Chloride 1,000 ml @ 100 mls/hr Q10H IV 01/16/18 14:36 01/16/18 21:13 (NS Flush) 2 ml UNSCH PRN IV FLUSH 01/16/18 14:45 (NS Flush) 2 ml BID IV FLUSH 01/16/18 21:00 01/17/18 08:50 (Tylenol) 650 mg Q4H PRN PO 01/16/18 14:45 (Zofran Inj) 4 mg Q6H PRN IVP 01/16/18 14:45 (Narcan Inj) 0.4 mg UNSCH PRN IV PUSH 01/16/18 14:45 (Senokot) 17.2 mg Q12H PRN PO 01/16/18 14:45 (Dulcolax Supp) 10 mg DAILY PRN RECTAL 01/16/18 14:45 (Lactulose Liq) 30 ml DAILY PRN PO 01/16/18 14:45 (Lipitor) 20 mg HS PO 01/16/18 21:00 01/16/18 21:07 (Vitamin D3) 1,000 units DAILY PO 01/17/18 09:00 01/17/18 08:50 (Pradaxa) 150 mg DAILY PO 01/17/18 09:00 01/17/18 08:50 (Protonix) 20 mg DAILY PO 01/17/18 09:00 01/17/18 08:50 (NovoLOG SUPPLEMENTAL SCALE) 1 ACHS SLIDING SCALE SQ 01/16/18 17:00 (Apresoline Inj) 10 mg Q4H PRN IV PUSH 01/16/18 18:45 01/16/18 19:23 Exam I&O / VS 01/17/18 01/17/18 01/18/18 15:00 23:00 07:00 Output Total 400 ml Balance -400 ml Output Urine Total 400 ml Vital Signs Date Time Temp Pulse Resp B/P (MAP) Pulse Ox O2 Delivery O2 Flow Rate FiO2 01/17/18 08:00 97.9 64 18 153/105 (121) 98 01/17/18 06:27 96 01/17/18 05:06 97.7 68 18 156/57 (90) 96 01/17/18 04:30 59 01/17/18 01:30 64 01/17/18 01:09 97.5 72 18 145/63 (90) 95 01/16/18 22:00 98.0 77 18 133/65 (87) 95 01/16/18 21:30 90 01/16/18 20:55 98.1 91 18 94/50 (65) 98 01/16/18 19:23 80 16 196/82 (120) 98 Room Air 01/16/18 18:11 75 15 194/92 (126) 96 Room Air 01/16/18 15:38 70 23 189/86 (120) 98 Room Air 01/16/18 12:10 76 20 160/77 (104) 99 Room Air 01/16/18 11:56 97.3 76 16 117/62 (80) 99 General: Alert and Oriented, No acute distress Eye: EOMI Respiratory: Non-labored respirations Musculoskeletal: ROM Neurologic: Alert, Oriented, Normal sensory, Normal motor, No focal defects, CN II-XII intact, Normal DTR's Psychiatric: Cooperative, Appropriate mood & affect Review/Management Diagnosis/Plan: (1) TIA (transient ischemic attack) ICD Codes: G45.9 - Transient cerebral ischemic attack, unspecified Status: Acute Plan: possible tia vs cerebral hypoperfusion rt carotid stenosis. does not explain all his symptoms lipids in good range recs f/u mra carotids add aspirin per his avionics installer. decision to change to coumadin/eliquis per his avionics installer orthostatics tele p.t. f/u exam (2) Chronic low back pain ICD Codes: M54.5 - Low back pain; G89.29 - Other chronic pain Status: Chronic Plan: chronic had appt today for pain stimulator eval (3) Afib ICD Codes: I48.91 - Unspecified atrial fibrillation Status: Chronic Plan: on pradaxa (4) HTN (hypertension) ICD Codes: I10 - Essential (primary) hypertension Status: Chronic Plan: goal 120/80 Problem Qualifiers (1) TIA (transient ischemic attack): Qualified Codes: G45.1 - Carotid artery syndrome (hemispheric) (2) Chronic low back pain: (3) Afib: Qualified Codes: I48.2 - Chronic atrial fibrillation (4) HTN (hypertension): Qualified Codes: I10 - Essential (primary) hypertension Fredis Merritt MD Jan 17, 2018 09:44
[2018-01-17] MEDS ORDERED: LORazepam 2 MG/ML VIAL IV PUSH ONE (10:15)
[2018-01-17] MEDS ORDERED: GADODIAMIDE PF 287 MG/ML 20 ML VIAL (for RAD MRI) IVCONTRAST ONE (11:43)
--- NOTE | 2018-01-17 11:46 | EKG ---
Date Performed: 01/16/2018 Time Performed: 12:36:22 PTAGE: 82 years EKG: Sinus rhythm BORDERLINE LEFT AXIS DEVIATION BORDERLINE ECG Since the PREVIOUS TRACING , no significant change noted PREVIOUS TRACIN12/25/2009 05.15 DOCTOR: Fiona Peralta Interpretating Date/Time 01/17/2018 11:44:31
--- NOTE | 2018-01-17 11:53 | RADRPT ---
EXAM DATE/TIME: 01/17/2018 11:02 [facility] COMPARISON: MRA BRAIN W/O CONTRAST, January 16, 2018, 16:56. INDICATIONS : Lower extremity weakness. CONTRAST: 20 cc Omniscan (gadodiamide) IV MEDICAL HISTORY : Hypertension. Diabetes mellitus type 2. SURGICAL HISTORY : Fusion, cervical. ENCOUNTER: Subsequent ACUITY: 3 day PAIN SCORE: 0/10 LOCATION: neck Percent stenosis is calculated using the diameter of the stenotic region over the diameter of the nor mal distal internal carotid artery. TECHNIQUE: Bolus infused MRA of the extracranial circulation was performed using a neurovascular coil. Post pro cessing was performed including rotating subvolume maximum intensity projections of each carotid kervin ry, rotating full volume maximum intensity projections of both carotid arteries, sagittal and coronal sliding thin slab reformations of each carotid artery, and left oblique sliding thin slab reformatio n through the aortic arch to include the origin of the arch branch vessels. FINDINGS: AORTIC ARCH: There is a three vessel origin of the great vessels from the aorta. No evidence of ostial narrowing. RIGHT CAROTID: The common carotid is widely patent. The examination demonstrates atherosclerotic plaquing at the bif urcation. There is no hemodynamically significant stenosis identified. The more cephalad portion of t he right internal carotid is widely patent. LEFT CAROTID: The common carotid artery is intact. The carotid bulb has a normal configuration without ulceration or narrowing. The internal carotid artery lumen is smooth without stenosis. The external carotid ar north is intact. VERTEBRALS: The vertebral arteries have a symmetric diameter. No stenotic lesions are seen. CONCLUSION: 1. Mild narrowing of the carotid bifurcation on the right. Stenosis is only approximately 10% by NASC ET criteria. 2. The left carotid circulation is widely patent. 3. The vertebral circulation is widely patent. Lester Lacy MD on January 17, 2018 at 11:46 Board Certified Radiologist. This report was verified electronically.
[2018-01-17 13:59] LABS: HEMOGLOBIN A1C 5.8 % (4.3-6.0)
[2018-01-17] MEDS ORDERED: FLUDROCORTISONE ACETATE 0.1 MG TAB PO ONE (15:30)
--- NOTE | 2018-01-17 19:34 | ECHRPT ---
Indication: CONCLUSIONS Normal left ventricular size. Mild concentric left ventricular hypertrophy. The left ventricular systolic function is normal with an estimated ejection fraction in the range of 60-65%. The left atrial size is [id number] dilated. The right atrial size is mildly dilated. Mild mitral valve regurgitation. Mitral annular calcification is present. Mild thickening of the mitral valve leaflets. There is trace tricuspid valve regurgitation. BP: 153 / 105 HR: Rhythm: Sinus MEASUREMENTS (Male / Female) Normal Values Technical Quality:Fair 2D ECHO LV Diastolic Diameter PLAX 4.1 cm 4.2 - 5.9 / 3.9 - 5.3 cm LV Systolic Diameter PLAX 3.0 cm IVS Diastolic Thickness 1.1 cm 0.6 - 1.0 / 0.6 - 0.9 cm LVPW Diastolic Thickness 1.1 cm 0.6 - 1.0 / 0.6 - 0.9 cm LV Relative Wall Thickness 0.5 RV Internal Dim ED PLAX 3.4 cm LVOT Diameter 2.1 cm LA Systolic Diameter LX 4.0 cm 3.0 - 4.0 / 2.7 - 3.8 cm M-MODE Aortic Root Diameter MM 2.9 cm LA Systolic Diameter MM 3.6 cm LA Ao Ratio MM 1.2 AV Cusp Separation MM 2.0 cm DOPPLER AV Peak Velocity 114.0 cm/s AV Peak Gradient 5.2 mmHg LVOT Peak Velocity 82.9 cm/s LVOT Peak Gradient 2.7 mmHg AV Area Cont Eq pk 2.5 cm MV Area PHT 2.9 cm Mitral E Point Velocity 86.9 cm/s Mitral A Point Velocity 111.0 cm/s Mitral E to A Ratio 0.8 LV E' Lateral Velocity 5.6 cm/s Mitral E to LV E' Lateral Ratio 15.6 LV E' Septal Velocity 6.3 cm/s Mitral E to LV E' Septal Ratio 13.7 TR Peak Velocity 267.0 cm/s TR Peak Gradient 28.5 mmHg Right Atrial Pressure 10.0 mmHg Pulmonary Artery Systolic Pressu 38.5 mmHg Right Ventricular Systolic Press 38.5 mmHg FINDINGS LEFT VENTRICLE Normal left ventricular size. Mild concentric left ventricular hypertrophy. RIGHT VENTRICLE Normal right ventricular size and systolic function. LEFT ATRIUM The left atrial size is ugpl-[id number] dilated. RIGHT ATRIUM The right atrial size is mildly dilated. ATRIAL SEPTUM No atrial level shunt is demonstrated by color flow Doppler interrogation. AORTA The aortic root and proximal ascending aorta are normal in size on limited imaging. MITRAL VALVE Mild mitral valve regurgitation. Mitral annular calcification is present. Mild thickening of the mitral valve leaflets. AORTIC VALVE Trileaflet aortic valve. No aortic valve stenosis or regurgitation. TRICUSPID VALVE There is trace tricuspid valve regurgitation. PULMONARY VALVE No pulmonary valve regurgitation or stenosis. VESSELS The inferior vena cava was not well visualized. Jordan Villanueva MD, FACC (Electronically Signed) Final Date:17 January 2018 19:33
[2018-01-17] MEDS: ATORVASTATIN 20 MG TAB PO SCH (21:05)
[2018-01-18 05:55] VITALS: BP 198/92; PULSE 93; RESP 20; TEMP 97.5; O2SAT 93
[2018-01-18 06:00] VITALS: BP 168/90
--- NOTE | 2018-01-18 08:05 | PD.PN.STU ---
Subjective Remarks Follow-up for orthostatic hypotension. Patient had "a rough night" last night. He reports episodes of anxiety. He states he feels very anxious in the hospital and is afraid he is getting worse here. He states he is nervous about his blood pressure sporadically becoming high over night. Denies fever, chills. Objective Vitals Vital Signs Date Time Temp Pulse Resp B/P (MAP) Pulse Ox O2 Delivery O2 Flow Rate FiO2 01/18/18 06:00 168/90 (116) 01/18/18 05:55 97.5 93 20 198/92 (127) 93 01/17/18 20:00 98.1 83 18 183/80 (114) 97 100/55 (70) 01/17/18 19:51 83 01/17/18 16:55 67 18 195/83 (120) 98 181/88 (119) 121/58 (79) 01/17/18 11:54 89/52 (64) 01/17/18 11:52 68 104/56 (72) 97 01/17/18 11:51 97.6 65 20 161/68 (99) 96 01/17/18 10:26 164/84 (110) 163/79 (107) 101/58 (72) 01/17/18 08:00 97.9 64 18 153/105 (121) 98 01/17/18 08:00 64 I/O 01/17/18 01/17/18 01/17/18 01/18/18 01/18/18 01/18/18 07:00 15:00 23:00 07:00 15:00 23:00 Output Total 400 ml 425 ml Balance -400 ml -425 ml Output Urine Total 400 ml 425 ml # Voids 1 4 # Bowel Movements 1 Result Diagram: 01/17/18 0637 01/17/18 0637 Imaging Last Impressions Neck Magnetic Resonance Angiography 01/17/18 0000 Signed Impressions: Service Date/Time: Wednesday, January 17, 2018 11:02 - CONCLUSION: 1. Mild narrowing of the carotid bifurcation on the right. Stenosis is only approximately 10%% by NASCET criteria. 2. The left carotid circulation is widely patent. 3. The vertebral circulation is widely patent. Lester Lacy MD Head CT 01/16/18 1221 Signed Impressions: Service Date/Time: Tuesday, January 16, 2018 13:10 - CONCLUSION: Normal examination. Sheila Drake MD Chest X-Ray 01/16/18 1221 Signed Impressions: Service Date/Time: Tuesday, January 16, 2018 12:26 - CONCLUSION: 1. No acute cardiopulmonary findings. Stable compared to prior dated 12/24/09 Lester Lacy MD Head Magnetic Resonance Angiography 01/16/18 0000 Signed Impressions: Service Date/Time: Tuesday, January 16, 2018 16:56 - CONCLUSION: Normal examination for a patient of this age. Stuart Barrios MD Carotid Artery Ultrasound 01/16/18 0000 Signed Impressions: Service Date/Time: Tuesday, January 16, 2018 15:44 - CONCLUSION: 1. Moderate plaque formation around the right carotid bifurcation with velocities suggestive of a stenosis in the 50-70%% range. No hemodynamically significant stenosis on the left. Stuart Barrios MD Brain MRI 01/16/18 0000 Signed Impressions: Service Date/Time: Tuesday, January 16, 2018 16:56 - CONCLUSION: Normal examination for a patient of this age. Stuart Barrios MD Objective Remarks GENERAL: Alert, oriented x3, appears anxious SKIN: Warm and dry. HEAD: Normocephalic. EYES: No scleral icterus. No injection or drainage. NECK: Supple, trachea midline. No JVD or lymphadenopathy. CARDIOVASCULAR: Regular rate and rhythm without murmurs, gallops, or rubs. RESPIRATORY: Breath sounds equal bilaterally. No accessory muscle use. GASTROINTESTINAL: Abdomen soft, non-tender, nondistended. MUSCULOSKELETAL: No cyanosis, or edema. BACK: Nontender without obvious deformity. No CVA tenderness. A/P Assessment and Plan Mr. Krishnamurthy is an 82-year-old male with a history of atrial fibrillation currently on Pradaxa who presented to the ED on 01/16/2018 with transient vision loss as well as dizziness. He describes low blood pressure at his baseline. However he occasionally has episodes significant hypertension as well. After his vision came back approximately 15 minutes after the onset, his blood pressure was in the 180s systolic. He reports dizziness on standing. His blood pressure normally runs lower, 100s-90s systolic over 70s-60s diastolic. Last night, his blood pressure was in the 180s-190s systolic with multiple reads. -Transient vision loss -Orthostatic hypotension -Near syncope -Transient vision loss and dizziness episodes could be due to significant elevation in blood pressure, patient had multiple episodes of hypertension in the 180s-190s systolic over night - possibly a pheochromocytoma, plasma metanephrines ordered -Orthostatic blood pressure remains significant, 74 point drop in systolic yesterday afternoon. Will recheck today. -Continue normal saline at 100 cc/h. -Patient is on Fludrocortisone 0.1mg Qday. Will D/C if orthostatic hypotension is not improved today. 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 -Continue NS @100 cc/hour. -Outpatient referral to Nephrology - Diabetes mellitus - Patient takes Glimepiride 1mg Qday at home. - Continue Sliding scale insulin. Goal in the hospital 140-180. - Continue Lipitor 20mg Qday. - Atrial fibrillation - Currently on no rate control meds. - Continue Pradaxa 150mg Qday. - Right sided mild carotid stenosis - MRA of carotid revealed 10% stenosis, unlikely to be the cause of Full code. Pradaxa. Discharge Planning D/C today if nephrology believes workup can be completed on an outpatient basis. Zay Last M3 Jan 18, 2018 08:05
[2018-01-18 08:06] VITALS: BP_SYST 100; BP_SYST 170; BP_DIAS 100; BP_DIAS 120; BP_DIAS 50; PULSE 69; RESP 20; TEMP 97.8; O2SAT 97
[2018-01-18] MEDS: CHOLECALCIFEROL (VIT D3) 1000 UNIT TAB PO SCH (08:43)
[2018-01-18] MEDS: DABIGATRAN ETEXILATE 150 MG CAP PO SCH (08:43)
[2018-01-18] MEDS: PANTOPRAZOLE SOD 20 MG DELAYED RELEASE TAB PO SCH (08:43)
[2018-01-18] MEDS: SODIUM CHLORIDE 0.9% FLUSH 10 ML FLUSH IV FLUSH SCH (08:43)
[2018-01-18] MEDS: INSULIN ASPART SUPPLEMENTAL SCALE SQ SCH ×2 (08:44→12:34)
[2018-01-18] MEDS: SODIUM CHLOR 0.9% 1000 ML INJ 1,000 ML IV SCH (08:45)
[2018-01-18] MEDS ORDERED: FLUDROCORTISONE ACETATE 0.1 MG TAB PO SCH (09:00)
--- NOTE | 2018-01-18 09:31 | HHI.PR ---
Review/Management Diagnosis/Plan: (1) TIA (transient ischemic attack) ICD Codes: G45.9 - Transient cerebral ischemic attack, unspecified Status: Acute Plan: hypotension causing 2/2 cerebral hypoperfusion lipids in good range mra carotids- nml recs ++orthostatic hypotension f/u bp log may need midodrine watch for multiple system atrophy d/w medical d/w pt/spouse f/u mri abdomen per medical d/c planning hold off on driving (2) Chronic low back pain ICD Codes: M54.5 - Low back pain; G89.29 - Other chronic pain Status: Chronic Plan: chronic had appt today for pain stimulator eval (3) Afib ICD Codes: I48.91 - Unspecified atrial fibrillation Status: Chronic Plan: on pradaxa (4) HTN (hypertension) ICD Codes: I10 - Essential (primary) hypertension Status: Chronic Plan: goal 120/80 Subjective Subjective Comments No acute events reported No headache No chest pain No dyspnea Active Medications Current Medications Medications (Trade) Dose Ordered Sig/Hawk Route Start Time Stop Time Status Last Admin (NS Flush) 2 ml UNSCH PRN IVF 01/16/18 12:30 Sodium Chloride 1,000 ml @ 100 mls/hr Q10H IV 01/16/18 14:36 01/17/18 21:07 (NS Flush) 2 ml UNSCH PRN IV FLUSH 01/16/18 14:45 (NS Flush) 2 ml BID IV FLUSH 01/16/18 21:00 01/17/18 21:06 (Tylenol) 650 mg Q4H PRN PO 01/16/18 14:45 (Zofran Inj) 4 mg Q6H PRN IVP 01/16/18 14:45 (Narcan Inj) 0.4 mg UNSCH PRN IV PUSH 01/16/18 14:45 (Senokot) 17.2 mg Q12H PRN PO 01/16/18 14:45 (Dulcolax Supp) 10 mg DAILY PRN RECTAL 01/16/18 14:45 (Lactulose Liq) 30 ml DAILY PRN PO 01/16/18 14:45 (Lipitor) 20 mg HS PO 01/16/18 21:00 01/17/18 21:05 (Vitamin D3) 1,000 units DAILY PO 01/17/18 09:00 01/18/18 08:43 (Pradaxa) 150 mg DAILY PO 01/17/18 09:00 01/18/18 08:43 (Protonix) 20 mg DAILY PO 01/17/18 09:00 01/18/18 08:43 (NovoLOG SUPPLEMENTAL SCALE) 1 ACHS SLIDING SCALE SQ 01/16/18 17:00 (Apresoline Inj) 10 mg Q4H PRN IV PUSH 01/16/18 18:45 01/16/18 19:23 (Florinef) 0.1 mg DAILY PO 01/18/18 09:00 01/18/18 08:43 (Ativan Inj) 2 mg ONCE ONCE IV PUSH 01/18/18 09:00 01/18/18 09:01 UNV Allergies Allergies Coded Allergies latex (Unverified Allergy, Mild, RASH, 01/16/18) Review of Systems All other ROS: ROS reviewed as documented in chart Exam I&O / VS 01/18/18 01/18/18 01/19/18 15:00 23:00 07:00 Output Total 800 ml Balance -800 ml Output Urine Total 800 ml Vital Signs Date Time Temp Pulse Resp B/P (MAP) Pulse Ox O2 Delivery O2 Flow Rate FiO2 01/18/18 08:06 97.8 69 20 170/120 (137) 97 170/100 (123) 100/50 (67) 01/18/18 06:00 168/90 (116) 01/18/18 05:55 97.5 93 20 198/92 (127) 93 01/17/18 20:00 98.1 83 18 183/80 (114) 97 100/55 (70) 01/17/18 19:51 83 01/17/18 16:55 67 18 195/83 (120) 98 181/88 (119) 121/58 (79) 01/17/18 11:54 89/52 (64) 01/17/18 11:52 68 104/56 (72) 97 01/17/18 11:51 97.6 65 20 161/68 (99) 96 01/17/18 10:26 164/84 (110) 163/79 (107) 101/58 (72) General: Alert and Oriented, No acute distress Eye: EOMI Respiratory: Non-labored respirations Musculoskeletal: ROM Neurologic: Alert, Oriented, Normal sensory, Normal motor, No focal defects, CN II-XII intact, Normal DTR's Psychiatric: Cooperative, Appropriate mood & affect Objective Micro and Labs Laboratory Tests Test 01/18/18 08:50 Problem Qualifiers (1) TIA (transient ischemic attack): Qualified Codes: G45.1 - Carotid artery syndrome (hemispheric) (2) Chronic low back pain: (3) Afib: Qualified Codes: I48.2 - Chronic atrial fibrillation (4) HTN (hypertension): Qualified Codes: I10 - Essential (primary) hypertension Fredis Merritt MD Jan 18, 2018 09:31
--- NOTE | 2018-01-18 09:32 | MB ---
cc: Jessica Lang MD DATE OF CONSULT: 01/17/2018 REASON FOR CONSULTATION: Right carotid artery stenosis, TIA, syncope, coronary artery disease, atrial fibrillation. HISTORY OF PRESENT ILLNESS: This 82-year-old gentleman with known past medical history states that on 2 occasions recently, he had episodes that he lost vision in both eyes and then about 3 days ago, he had an episode where he was unable to stand up and walk. Both episodes resolved within a few minutes and then the patient will be dizzy. Apparently, the patient had similar episodes the day of admission, when he became very weak and could not stand on his legs. The patient is now being worked up. In the process of workup, he was found to have a moderate degree of right internal carotid artery stenosis by ultrasound duplex study. Question arise about what to do with this in the context of the patient's symptoms. PAST MEDICAL HISTORY: Coronary artery disease, chronic atrial fibrillation, on Pradaxa, CVA, diabetes mellitus, hypertension and history of prostate cancer. PAST SURGICAL HISTORY: That of cervical spine fusion many, many years ago. MEDICATIONS: Can be found in the record. SOCIAL HISTORY: The patient does not smoke or drink. PHYSICAL EXAMINATION: GENERAL: Reveals a pleasant 82-year-old gentleman. HEENT: Normocephalic. No trauma to the head. Pupils equal, reactive. Extraocular muscles intact. NECK: Supple, bilateral carotid pulses. No bruits. CHEST: Bilateral breath sounds, decreased in both lung lopez, however. HEART: Regular rhythm when I was in the room. I do not believe that the patient was actually in atrial fibrillation while I examined him. ABDOMEN: Soft, active bowel sounds. EXTREMITIES: Appeared to be within normal limits with proximal, distal pulses. No acute vascular deficit. BACK: Normal. NEUROLOGIC: The patient is fully intact. No , cognitively fully with it. IMPRESSION AND RECOMMENDATIONS: I reviewed laboratory and procedures. Indeed, the arterial ultrasound somewhat overestimated the carotid stenosis, reading it is about 60%. MRA was performed and I went over the MRA with Dr. Cj Lacy. This is essentially normal with very tiny, maybe discrepancy as far as the lumen is concerned, so the patient's carotids are essentially normal. The above noted symptoms on the other hand can be a combination of the other things, sometimes vertebrobasilar basin and perfusion of the posterior lobes can cause a problem of this sort. The patient could have had embolism from his heart and a microemboli may behave this way. On the other hand, fluctuations of blood pressure can be also responsible for the same. At this point, there is nothing from a surgical point. The patient does not require further workup for carotid dissection. Thank you much for referral. MD JUAN RAMON Barclay/MARIO , 06:25 PM , 09:22 PM
[2018-01-18 09:57] VITALS: O2SAT 97
[2018-01-18] MEDS ORDERED: LORazepam 2 MG/ML VIAL IV PUSH ONE ×2 (10:00→15:00)
[2018-01-18] MEDS ORDERED: GADODIAMIDE PF 287 MG/ML 20 ML VIAL (for RAD MRI) IVCONTRAST ONE (10:27)
[2018-01-18] MEDS ORDERED: FLUD.1 PO (11:15)
[2018-01-18 11:45] VITALS: BP_SYST 160; BP_SYST 60; BP_SYST 90; BP_DIAS 60; BP_DIAS 90; PULSE 70; RESP 20; TEMP 98; O2SAT 97
--- NOTE | 2018-01-18 13:11 | RADRPT ---
EXAM DATE/TIME: 01/18/2018 10:25 [facility] COMPARISON: MRA CAROTIDS W CONTRAST, January 17, 2018, 11:02. INDICATIONS : Pheochromocystosis. CONTRAST: 18 cc Omniscan (gadodiamide) IV MEDICAL HISTORY : Hypertension. Diabetes mellitus type 2. SURGICAL HISTORY : Fusion, cervical. ENCOUNTER: Initial ACUITY: 3 day PAIN SCORE: 0/10 LOCATION: abdomen. TECHNIQUE: Multiplanar, multisequence magnetic resonance imaging of the abdomen was performed without and with i ntravenous contrast. FINDINGS: The appearance of the liver, spleen, pancreas, adrenal glands and kidneys is within normal limits. Th ere is no retroperitoneal lymphadenopathy. No mass lesion is identified within the abdomen. The visualized loops of small and large bowel are unremarkable. No free fluid is seen within the abdo men. Of concern, the examination demonstrates abnormal enhancement within the endplates and involving the disc space at what appears to BE the L3/4 level. There is some degree of abnormal enhancing soft tiss ue around this level as well. In the appropriate clinical setting this is concerning for a discitis. CONCLUSION: 1. One no mass lesion identified within the abdomen. No definite abnormality to indicate pheochromocy eliezer identified. 2. There is abnormal enhancement involving the disc and surrounding soft tissues as well as the verte bral endplates at L3-4. This is concerning for a possible discitis. MRI imaging of the lumbar spine w ith contrast for further assessment and to confirm global location would be of benefit Lester Lacy MD on January 18, 2018 at 12:52 Board Certified Radiologist. This report was verified electronically.
--- NOTE | 2018-01-18 18:41 | HHI.DS ---
Discharge Summary Admission Date Jan 16, 2018 at 15:27 Discharge Date: Jan 18, 2018 Admitting Diagnosis (1) Orthostatic hypotension ICD Code: I95.1 - Orthostatic hypotension Diagnosis: Principal (2) Atrial fibrillation ICD Code: I48.91 - Unspecified atrial fibrillation (3) Near syncope ICD Code: R55 - Syncope and collapse Procedures Echocardiogram 01/17/2018. Report pending. Brief History - From Admission This is a pleasant 82 y/o male with Hypertension, Hyperlipidemia, DM II, PAF, who was brought in to Emergency Room with difficulty walking earlier today which is resolved. The patient states that on Wednesday, 3 days ago , he had an episode where he was not able to see out of both eyes. He states this lasted roughly 15 minutes. He states he called his beauty shop manager who told him to take his Pradaxa which he is already on as well as to aspirin. He states that it had resolved and everything was fine until last night when he had an episode of dizziness. He states that it also resolved however this morning when he was at breakfast he had the weakness in his legs. is at the bedside states that she and their friends had to help him in and out of the car when this happened. Seen in his bedroom in the presence of his Daughter Mrs. Markham and his Mrs. Salinas all questions answered. CBC/BMP: 01/17/18 0637 01/17/18 0637 Significant Findings Laboratory Tests Test 01/16/18 12:28 01/16/18 13:54 01/16/18 22:42 01/17/18 06:37 Red Blood Count 4.27 MIL/MM3 (4.50-5.90) 4.20 MIL/MM3 (4.50-5.90) Mean Corpuscular Hemoglobin 34.3 PG (27.0-34.0) Prothrombin Time 12.0 SEC (9.8-11.6) 12.1 SEC (9.8-11.6) Activated Partial Thromboplast Time 32.2 SEC (24.3-30.1) Blood Urea Nitrogen 25 MG/DL (7-18) 24 MG/DL (7-18) Creatinine 1.95 MG/DL (0.60-1.30) 1.42 MG/DL (0.60-1.30) Random Glucose 142 MG/DL (74-106) 140 MG/DL (74-106) Estimat Glomerular Filtration Rate 33 ML/MIN (>89) 48 ML/MIN (>89) Troponin I LESS THAN 0.02 NG/ML LESS THAN 0.02 NG/ML Triglycerides Level 156 MG/DL (42-150) Thyroid Stimulating Hormone 3rd Gen 5.640 uIU/ML (0.358-3.740) Platelet Count 128 TH/MM3 (150-450) Calcium Level 8.3 MG/DL (8.5-10.1) Chloride Level 110 MEQ/L (98-107) Test 01/18/18 08:50 Imaging Last Impressions Abdomen MRI 01/18/18 0000 Signed Impressions: Service Date/Time: Thursday, January 18, 2018 10:25 - CONCLUSION: 1. One no mass lesion identified within the abdomen. No definite abnormality to indicate pheochromocytoma identified. 2. There is abnormal enhancement involving the disc and surrounding soft tissues as well as the vertebral endplates at L3-4. This is concerning for a possible discitis. MRI imaging of the lumbar spine with contrast for further assessment and to confirm global location would be of benefit Lester Lacy MD Neck Magnetic Resonance Angiography 01/17/18 0000 Signed Impressions: Service Date/Time: Wednesday, January 17, 2018 11:02 - CONCLUSION: 1. Mild narrowing of the carotid bifurcation on the right. Stenosis is only approximately 10%% by NASCET criteria. 2. The left carotid circulation is widely patent. 3. The vertebral circulation is widely patent. Lester Lacy MD Head CT 01/16/18 1221 Signed Impressions: Service Date/Time: Tuesday, January 16, 2018 13:10 - CONCLUSION: Normal examination. Sheila Drake MD Chest X-Ray 01/16/181 Signed Impressions: Service Date/Time: Tuesday, January 16, 2018 12:26 - CONCLUSION: 1. No acute cardiopulmonary findings. Stable compared to prior dated 12/24/09 Lester Lacy MD Head Magnetic Resonance Angiography 01/16/18 0000 Signed Impressions: Service Date/Time: Tuesday, January 16, 2018 16:56 - CONCLUSION: Normal examination for a patient of this age. Stuart Barrios MD Carotid Artery Ultrasound 01/16/18 0000 Signed Impressions: Service Date/Time: Tuesday, January 16, 2018 15:44 - CONCLUSION: 1. Moderate plaque formation around the right carotid bifurcation with velocities suggestive of a stenosis in the 50-70%% range. No hemodynamically significant stenosis on the left. Stuart Barrios MD Brain MRI 01/16/18 0000 Signed Impressions: Service Date/Time: Tuesday, January 16, 2018 16:56 - CONCLUSION: Normal examination for a patient of this age. Stuart Barrios MD PE at Discharge GENERAL: SKIN: Warm and dry. HEAD: Normocephalic. EYES: No scleral icterus. No injection or drainage. NECK: Supple, trachea midline. No JVD or lymphadenopathy. CARDIOVASCULAR: Regular rate and rhythm without murmurs, gallops, or rubs. RESPIRATORY: Breath sounds equal bilaterally. No accessory muscle use. GASTROINTESTINAL: Abdomen soft, non-tender, nondistended. MUSCULOSKELETAL: No cyanosis, or edema. BACK: Nontender without obvious deformity. No CVA tenderness. Pt update on day of discharge Patient is doing well. No chest pain, shortness of breath, fever, chills. Abdominal MRI did not show any evidence of adrenal gland tumor. However, radiologist recommended L spine MRI due to suspicion over discitis. Patient has a long history of chronic back pain. However, he denies any acute exacerbation of pain, denies any fever, chills. Since clinical evidence of any discitis is low, after discussing with patient, we decided to discharge patient and give him an Rx for outpatient L spine MRI. He has seen Dr. Suarez in the past and he can follow up with him. Hospital Course Mr. Krishnamurthy is a pleasant 82-year-old male with a history of atrial fibrillation currently on Pradaxa who presented to the emergency department on due to transient vision loss as well as dizziness. He describes low blood pressure at his baseline. However occasionally he has significant hypertension as well. During his episode of vision loss he was unable to check his blood pressure. However immediately after his vision came back approximately 15 minutes after the onset, his blood pressure was in the 180s systolic. He does report dizziness when he stands up. His blood pressure normally runs in the 90s systolic. -Transient vision loss -Orthostatic hypotension -Near syncope -Transient vision loss could be due to significant elevation in blood pressure -possibly PRES. -Orthostatic blood pressure was significant on multiple occasions. Systolic BP dropped almost 60mmHg from sitting to standing. -We started patient on Fludrocortisone 0.1mg Qday. - Due to labile BP, we were concern about pheochromocytoma. Plasma metanephrine ordered and will take days to get the result. Patient wants to go home. 24 hour urine collection for urine metanephrine can be done in the outpatient setting as well. I discussed the case with our Liaison Inspection Laboratory Assistant Dr. Huntley. We obtained Abdominal MRI which did not indicate any tumor. - Patient will follow up with Liaison Inspection Laboratory Assistant tomorrow AM. If biochemical work up indicates possibility of Pheochromocytoma, MIBG scan can be considered. -Neurology will also follow him in the outpatient setting for any etiology for this significant orthostatics. - Patient may need a Nephrology evaluation in the outpatient setting as well. - No driving for now. Advised family members to stay with him all the time for now. - Acute kidney injury -Creatinine improved from 1.95 --> 1.42. -Received NS @100 cc/hour. -Outpatient referral to Nephrology would be reasonable and can be done by PCP. - Diabetes mellitus - Patient takes Glimepiride 1mg Qday at home. - Continue Sliding scale insulin. Goal in the hospital 140-180. - Continue Lipitor 20mg Qday. - Atrial fibrillation - Currently on no rate control meds. - Continue Pradaxa 150mg Qday. Pt Condition on Discharge: Good Discharge Disposition: Discharge Home Discharge Time: > 30 minutes Discharge Instructions DIET: Follow Instructions for: Diabetic Diet Speech Therapy-Diet Recommends: Regular Activities you can perform: Regular-No Restrictions Follow up Referrals: Appointment for Follow Up Endocrinology - 01/19/18 with Ankit Huntley MD PCP Follow-up - 10 Days PCP Follow-up New Orders: MRI L Spine W & W/O Contrast - 10 Days New Medications: Fludrocortisone (Fludrocortisone) 0.1 Mg Tab 0.1 MG PO DAILY for orthostatic hypotension, #30 TAB Hold if blood pressure > 120 Continued Medications: Atorvastatin (Lipitor) 20 Mg Tab 20 MG PO HS for Cholesterol Management, #30 TAB 0 Refills Cholecalciferol (Vitamin D-1000) 1,000 Unit Tab 1000 UNITS PO DAILY for Nutritional Supplement, #1 BOTTLE 0 Refills Dabigatran (Pradaxa) 150 Mg Cap 150 MG PO DAILY for Blood Clot Prevention, #60 CAP 0 Refills Glimepiride (Glimepiride) 1 Mg Tab 1 MG PO DAILY for Blood Sugar Management, #30 TAB 0 Refills Take with breakfast or first main meal Lisinopril (Lisinopril) 5 Mg Tab 5 MG PO DAILY PRN for SBP>125, #30 TAB 0 Refills Omeprazole (Omeprazole) 20 Mg Tab 20 MG PO DAILY, #30 TAB 0 Refills Lyssa Bowman DO Jan 18, 2018 18:41
[2018-01-19] MEDS ORDERED: ASPIRIN EC 81 MG TABEC PO SCH (09:00)
[2018-01-19] MEDS ORDERED: PNEUMOCOCCAL POLYVALENT INJ 25 MCG/0.5 ML SYR IM ONE (10:00)
[2018-01-20 13:38] LABS: METANEPHRINES <0.20 nmol/L (<0.50); NORMETANEPHRINE <0.20 nmol/L (<0.90)
== END 2018-01-18 15:28 | disposition home or self-care (01) | DRG 312 ==
LOC: NEPE 11:52 → NEDA 15:27 → N05A 19:39
PROVIDERS: ADMIT Hospitalist; ATTEND Hospitalist
DX: I95.1 Orthostatic hypotension (principal); N17.9 Acute kidney failure, unspecified; I48.0 Paroxysmal atrial fibrillation; E11.22 Type 2 diabetes mellitus with diabetic chronic kidney disease; H53.129 Transient visual loss, unspecified eye; I48.2 Chronic atrial fibrillation; I12.9 Hypertensive chronic kidney disease with stage 1 through stage 4 chronic kidney disease, or unspecified chronic kidney disease; E78.5 Hyperlipidemia, unspecified; K21.9 Gastro-esophageal reflux disease without esophagitis; R27.0 Ataxia, unspecified; I25.10 Atherosclerotic heart disease of native coronary artery without angina pectoris; F10.10 Alcohol abuse, uncomplicated; N18.9 Chronic kidney disease, unspecified; G89.29 Other chronic pain; M54.5 Low back pain; F41.9 Anxiety disorder, unspecified; E78.00 Pure hypercholesterolemia, unspecified; Z86.73 Personal history of transient ischemic attack (TIA), and cerebral infarction without residual deficits; Z98.1 Arthrodesis status; Z79.82 Long term (current) use of aspirin; Z79.4 Long term (current) use of insulin; Z85.46 Personal history of malignant neoplasm of prostate; Z79.01 Long term (current) use of anticoagulants
CPT/HCPCS: 70450; 70544; 70548; 70551; 71045; 74183; 80048; 80053; 80061; 81001; 82550; 82607; 82746; 82948; 83036; 83835; 84425; 84439; 84443; 84484; 85025; 85610; 85730; 86140; 86592; 93005; 93306; 93880; 99285; A9579; J0360; J2060; J7030